=== PATIENT | female | born 1980 | race African-American/Black ===

== ENCOUNTER 2024-09-12 01:33 | Emergency (ER) | payer SELFPAY ==
[~2024-09-12] VITALS: Ht 167.6 cm; Wt 72.7 kg
[2024-09-12 01:39] VITALS: BP 136/74; PULSE 78; RESP 16; TEMP 98.2; O2SAT 98
[2024-09-13] MEDS ORDERED: CETI-450 PO (02:29)
== END 2024-09-12 02:53 | disposition left against medical advice (07) ==
LOC: EMS 01:33
DX: R10.2 Pelvic and perineal pain (principal); Z53.21 Procedure and treatment not carried out due to patient leaving prior to being seen by health care provider

== ENCOUNTER 2024-09-13 00:39 | Emergency (ER) | payer BC ==
[~2024-09-13] VITALS: Ht 167.6 cm; Wt 71.0 kg
[2024-09-13 00:41] VITALS: BP 118/60; PULSE 88; RESP 16; TEMP 98.2; O2SAT 100
[2024-09-13] MEDS: OXYMETAZOLINE HCL 0.05% 15 ML NASAL SPRAY NASAL ONE (02:07)
[2024-09-13] MEDS: CETIRIZINE HCL 10 MG TABLET PO ONE (02:07)
[2024-09-13] MEDS ORDERED: CETI-450 PO (02:29)
== END 2024-09-13 02:42 | disposition home or self-care (01) ==
LOC: EMS 00:39
DX: R09.81 Nasal congestion (principal)
CPT/HCPCS: 99283

== ENCOUNTER 2024-09-22 11:30 | Emergency (ER) | payer BC ==
[~2024-09-22 11:30] MED LIST: CETI-450 PO
[2024-09-23] MEDS ORDERED: QUET300T19 PO (15:00)
== END 2024-09-22 11:48 | disposition left against medical advice (07) ==
LOC: EMS 11:31
DX: R53.1 Weakness (principal); Z53.21 Procedure and treatment not carried out due to patient leaving prior to being seen by health care provider
CPT/HCPCS: 93005

== ENCOUNTER 2024-09-23 08:20 | Inpatient (IN) | payer BC ==
[~2024-09-23] VITALS: Ht 160 cm; Wt 64.1 kg
[2024-09-23] MEDS: DiphenhydrAMINE HCL 50 MG/ML VIAL IM ONE (08:44)
[2024-09-23] MEDS: HALOPERIDOL LACTATE 5 MG/ML VIAL IM ONE (08:45)
[2024-09-23] MEDS: LORazepam 2 MG/ML VIAL IM ONE (08:45)
[2024-09-23 09:43] LABS: COVID AG,FIA SOURCE NASAL SWAB
[2024-09-23 10:03] LABS: SARS-COV2 (COVID) ANTIGEN,FIA Negative (Negative)
[2024-09-23] MEDS ORDERED: HALOPERIDOL 5 MG TABLET PO PRN (10:15)
[2024-09-23 10:38] LABS: BASOPHILS % (AUTO) 0.4 % (0.0-2.0); EOSINOPHILS % (AUTO) 0.8 % (1.0-6.0); HEMATOCRIT 36.2 % (36-46); HEMOGLOBIN 11.8 g/dL (12.0-16.0); LYMPHOCYTES # (AUTO) 1.5 K/uL (1.0-4.8); LYMPHOCYTES % (AUTO) 31.4 % (22.0-44.0); MEAN CORPUSCULAR HEMOGLOBIN 30.3 pg (26.0-34.0); MEAN CORPUSCULAR HGB CONC 32.7 G/dL (31.0-37.0); MEAN CORPUSCULAR VOLUME 93 fL (80-100); MONOCYTES # (AUTO) 0.5 K/uL (0.1-1.0); MONOCYTES % (AUTO) 11.4 % (2.0-9.0); NEUTROPHILS # (AUTO) 2.7 K/uL (1.8-7.7); PLATELET COUNT (AUTO) 380 K/uL (150-450); RED CELL DISTRIBUTION WIDTH 13.9 % (11.5-14.5); WHITE BLOOD COUNT (AUTO) 4.7 K/uL (4.5-11.0)
[2024-09-23 10:44] LABS: ANION GAP 7 mmol/L (8-16); CALCIUM, TOTAL 8.8 mg/dL (8.8-10.5); CARBON DIOXIDE 28 mmol/L (22-29); CHLORIDE 101 mmol/L (98-107); CREATININE 0.61 mg/dL (0.60-1.30); GLOMERULAR FILTR. RATE CALC > 60 mL/min (>60); GLUCOSE,RANDOM 91 mg/dL (70-110); POTASSIUM 3.5 mmol/L (3.5-5.1); SODIUM SERUM 136 mmol/L (136-145); UREA NITROGEN, BLOOD 3 mg/dL (7-18)
[2024-09-23 10:53] LABS: ALCOHOL, BLOOD (SERUM) < 3 mg/dL (0-10)
[2024-09-23 11:45] LABS: RBC MORPHOLOGY COMMENT ABNORMAL RBC MORPH
[2024-09-23 12:48] VITALS: O2SAT 98
[2024-09-23 13:28] VITALS: BP 123/62; PULSE 80; RESP 16; TEMP 97.7; O2SAT 95
[2024-09-23] MEDS ORDERED: CloNIDine HCL 0.1 MG TABLET PO PRN (14:30)
[2024-09-23] MEDS ORDERED: DOCUSATE SODIUM 100 MG CAPSULE PO PRN (14:30)
[2024-09-23] MEDS ORDERED: LOPERAMIDE HCL 2 MG CAPSULE PO PRN (14:30)
[2024-09-23] MEDS ORDERED: GuaiFENesin/D-METHORPHAN [SUGAR-FREE] 200-20MG/10 ML SYRUP UDCUP PO PRN (14:30)
[2024-09-23] MEDS ORDERED: MAG HYDROX/ALUMINUM HYD/SIMETH ES 30 ML SUSPENSION UDCUP PO PRN (14:30)
[2024-09-23] MEDS ORDERED: NICOTINE 14 MG/24 HOUR PATCH TD PRN (14:30)
[2024-09-23] MEDS ORDERED: PETROLATUM,WHITE 28 GM JELLY TP PRN (14:30)
[2024-09-23] MEDS ORDERED: ONDANSETRON 4 MG TABLET PO PRN (14:30)
[2024-09-23] MEDS ORDERED: MAGNESIUM HYDROXIDE SUSPENSION 30 ML UDCUP PO PRN (14:30)
[2024-09-23] MEDS ORDERED: ALBUTEROL SULFATE HFA 90 MCG/PUFF 8 GM INHALER IH PRN (14:30)
[2024-09-23] MEDS ORDERED: QUET300T19 PO (15:00)
[2024-09-23 20:05] VITALS: BP 146/94; PULSE 94; RESP 18; TEMP 98.6; O2SAT 100
[2024-09-23] MEDS: QUEtiapine FUMARATE 200 MG TABLET PO SCH (20:50)
[2024-09-24 07:55] LABS: BASOPHILS % (AUTO) 0.3 % (0.0-2.0); EOSINOPHILS % (AUTO) 1.5 % (1.0-6.0); HEMATOCRIT 36.3 % (36-46); HEMOGLOBIN 11.7 g/dL (12.0-16.0); LYMPHOCYTES # (AUTO) 0.9 K/uL (1.0-4.8); LYMPHOCYTES % (AUTO) 14.6 % (22.0-44.0); MEAN CORPUSCULAR HEMOGLOBIN 29.9 pg (26.0-34.0); MEAN CORPUSCULAR HGB CONC 32.2 G/dL (31.0-37.0); MEAN CORPUSCULAR VOLUME 93 fL (80-100); MONOCYTES # (AUTO) 0.6 K/uL (0.1-1.0); NEUTROPHILS # (AUTO) 4.6 K/uL (1.8-7.7); NEUTROPHILS % (AUTO) 74.6 % (40.0-70.0); PLATELET COUNT (AUTO) 384 K/uL (150-450); RED BLOOD CELL COUNT(AUTO) 3.91 MIL/uL (4.00-5.20); RED CELL DISTRIBUTION WIDTH 14.2 % (11.5-14.5); WHITE BLOOD COUNT (AUTO) 6.2 K/uL (4.5-11.0)
[2024-09-24 08:14] LABS: ALANINE AMINOTRANSFERASE 27 U/L (12-78); ALBUMIN 3.4 g/dL (3.4-5.0); ALKALINE PHOSPHATASE 46 U/L (46-116); ANION GAP 7 mmol/L (8-16); ASPARTATE AMINOTRANSFERASE 27 U/L (15-37); BILIRUBIN,TOTAL 0.4 mg/dL (0.1-1.0); CALCIUM, TOTAL 9.2 mg/dL (8.8-10.5); CARBON DIOXIDE 27 mmol/L (22-29); CHLORIDE 103 mmol/L (98-107); CHOL/HDL RATIO 1.9 (3.9-5.7); CHOLESTEROL 119 mg/dL (131-200); CREATININE 0.73 mg/dL (0.60-1.30); GLOMERULAR FILTR. RATE CALC > 60 mL/min (>60); GLUCOSE,RANDOM 135 mg/dL (70-110); HDL CHOLESTEROL 63 mg/dL (40-60); LDL CHOL (CALC.) 51 mg/dL (0-130); POTASSIUM 3.6 mmol/L (3.5-5.1); SODIUM SERUM 137 mmol/L (136-145); THYROID STIMULATING HORMONE 1.13 uIU/mL (0.36-3.74); TOTAL PROTEIN, SERUM 7.2 g/dL (6.4-8.2); TRIGLYCERIDES 24 mg/dL (15-150); UREA NITROGEN, BLOOD 5 mg/dL (7-18)
[2024-09-24 10:22] VITALS: PULSE 85; RESP 16; TEMP 98; O2SAT 100
[2024-09-24 21:14] VITALS: RESP 18; TEMP 98.1; O2SAT 98
[2024-09-24 21:31] VITALS: RESP 18
[2024-09-24] MEDS: IBUPROFEN 400 MG TABLET PO PRN (21:38)
[2024-09-24 22:38] VITALS: RESP 16
[2024-09-25] MEDS: DiphenhydrAMINE HCL 50 MG/ML VIAL IM ONE (11:10)
[2024-09-25] MEDS: LORazepam 2 MG/ML VIAL IM ONE (11:10)
[2024-09-25] MEDS: HALOPERIDOL LACTATE 5 MG/ML VIAL IM ONE (11:10)
[2024-09-25 14:02] VITALS: BP 133/94; PULSE 90; RESP 18; TEMP 97.4; O2SAT 100
[2024-09-25 20:50] VITALS: RESP 18
[2024-09-26 05:25] VITALS: BP 126/89; PULSE 86; RESP 20; TEMP 98; O2SAT 98
[2024-09-26 06:30] VITALS: RESP 18
[2024-09-26] MEDS: LORazepam 2 MG/ML VIAL IM ONE (08:21)
[2024-09-26] MEDS: DiphenhydrAMINE HCL 50 MG/ML VIAL IM ONE (08:21)
[2024-09-26] MEDS: HALOPERIDOL LACTATE 5 MG/ML VIAL IM ONE (08:23)
[2024-09-26 10:41] VITALS: BP 107/65; PULSE 67; RESP 14; TEMP 97.5; O2SAT 98
[2024-09-26 21:00] VITALS: RESP 18
[2024-09-27 08:45] VITALS: BP 126/81; PULSE 86; RESP 19; O2SAT 99
[2024-09-27 21:46] VITALS: RESP 18; TEMP 97.3; O2SAT 97
[2024-09-28 05:50] VITALS: BP 120/78; PULSE 80; RESP 18; TEMP 98.1; O2SAT 98
[2024-09-28 09:33] VITALS: BP 127/87; PULSE 87; RESP 19; TEMP 97.5; O2SAT 98
[2024-09-28] MEDS: DiphenhydrAMINE HCL 50 MG/ML VIAL IM ONE (16:05)
[2024-09-28] MEDS: HALOPERIDOL LACTATE 5 MG/ML VIAL IM ONE (16:05)
[2024-09-28] MEDS ORDERED: LORazepam 2 MG/ML VIAL ONE (16:05)
[2024-09-28] MEDS: LORazepam 2 MG/ML VIAL IM ONE (16:05)
[2024-09-28] MEDS ORDERED: HALOPERIDOL LACTATE 5 MG/ML VIAL ONE (16:05)
[2024-09-28] MEDS ORDERED: DiphenhydrAMINE HCL 50 MG/ML VIAL ONE (16:06)
[2024-09-29] MEDS: LORazepam 2 MG TABLET PO PRN (07:52)
[2024-09-29 08:02] VITALS: BP 124/90; PULSE 85; RESP 18; TEMP 97.4; O2SAT 100
[2024-09-29] MEDS: QUEtiapine FUMARATE 300 MG TABLET PO SCH (20:47)
[2024-09-29 21:11] VITALS: PULSE 75; RESP 18; TEMP 98.2
[2024-09-30 04:43] VITALS: BP 131/89; PULSE 80; RESP 16; TEMP 97.5
[2024-09-30 09:24] VITALS: RESP 17
[2024-09-30 21:12] VITALS: BP 125/70; PULSE 91; RESP 18; TEMP 97.2
[2024-10-01 09:50] VITALS: BP 136/99; PULSE 94; RESP 18; TEMP 97.3; O2SAT 100
[2024-10-01] MEDS: ZOLPIDEM TARTRATE 10 MG TABLET PO PRN (21:13)
[2024-10-01 21:26] VITALS: BP 139/82; PULSE 90; RESP 16; TEMP 97.1; O2SAT 99
[2024-10-02 05:49] VITALS: BP 113/60; PULSE 106; RESP 17; TEMP 97.5; O2SAT 100
[2024-10-02] MEDS: ACETAMINOPHEN 325 MG TABLET PO PRN (05:49)
[2024-10-02 08:06] VITALS: BP 121/91; PULSE 89; RESP 18; TEMP 97.5; O2SAT 97
[2024-10-02 18:31] VITALS: BP 129/69; PULSE 92; RESP 20; O2SAT 98
[2024-10-02 19:30] VITALS: RESP 18
[2024-10-02 21:11] VITALS: BP 132/84; PULSE 89; RESP 18; TEMP 97.7; O2SAT 100
[2024-10-03 04:50] VITALS: BP 120/80; PULSE 85; RESP 19; TEMP 98; O2SAT 98
[2024-10-03 05:55] VITALS: RESP 18
[2024-10-03 08:00] VITALS: BP 134/77; PULSE 102; RESP 19; TEMP 96.7; O2SAT 99
[2024-10-03] MEDS ORDERED: QUET300T2 PO (11:56)
== END 2024-10-03 13:10 | disposition left against medical advice (07) | DRG 885 ==
LOC: EMS 08:26 → 3EC 12:47
PROVIDERS: ADMIT Psychiatry & Neurology Psychiatry; ATTEND Psychiatry & Neurology Psychiatry
PROC: GZHZZZZ Group Psychotherapy (ICD-10-PCS; principal; 2024-09-23)
PROC: GZ52ZZZ Individual Psychotherapy, Cognitive (ICD-10-PCS; 2024-09-23)
DX: F25.0 Schizoaffective disorder, bipolar type (principal); Z20.822 Contact with and (suspected) exposure to COVID-19; D64.9 Anemia, unspecified; R73.9 Hyperglycemia, unspecified; R40.0 Somnolence; Z53.29 Procedure and treatment not carried out because of patient's decision for other reasons; Z78.1 Physical restraint status; Z79.899 Other long term (current) drug therapy; Z91.148 Patient's other noncompliance with medication regimen for other reason
CPT/HCPCS: 80048; 80053; 80061; 83036; 84443; 84703; 85025; 99285; G0480; J1200; J1630; J2060